=== PATIENT | female | born 1950 | race Caucasian/White ===

== ENCOUNTER 2021-06-16 12:34 | Emergency (ER) | payer MEDICARE ==
[2021-06-16 12:42] VITALS: TEMP 98.1
[2021-06-16] MEDS ORDERED: FLUORESCEIN STRIPS 1 MG STRIP LEFT EYE ONE (13:10)
[2021-06-16] MEDS ORDERED: PROPARACAINE 0.5% OPHTH DROPS 15 ML BTL RIGHT EYE STA (13:10)
--- NOTE | 2021-06-16 13:29 | ED ---
ENT HPI - General Chief complaint: ENT Stated complaint: head pain & lump on face Time Seen by Provider: 06/16/21 12:51 Source: patient Mode of arrival: ambulatory Limitations: no limitations - History of Present Illness Initial comments: 70-year-old male presents to the emergency department for a chief complaint of left-sided facial pain. Patient reports this started several days ago in the left supraorbital region and now it is moving to her scalp. Patient reports it feels like a lightening type pain that seems to exacerbate it when the area is touched. States several days ago she may have hit her head but is not completely sure. She is not any blood thinners. She does report some pain behind the left eye that does not appear to be exacerbated with extraorbital movements. She denies any visual changes, one-sided weakness or paresthesias. Head chickenpox as a child. Had itching was vaccine. States she spoke to a nurse through the phone and was advised to be evaluated for possible shingles. Denies any fever chills chest pain shortness of breath or headache. - Related Data Allergies Allergy/AdvReac Type Severity Reaction Status Date / Time cefaclor [From Ceclor] Allergy Unknown Verified 06/16/21 12:37 clindamycin Allergy Unknown Verified 06/16/21 12:37 levofloxacin [From Levaquin] Allergy Unknown Verified 06/16/21 12:37 propoxyphene Allergy Unknown Verified 06/16/21 12:37 Sulfa (Sulfonamide Allergy Unknown Verified 06/16/21 12:37 Antibiotics) tetracycline Allergy Unknown Verified 06/16/21 12:37 Review of Systems ROS Statement: Those systems with pertinent positive or pertinent negative responses have been documented in the HPI. ROS Other: All systems not noted in ROS Statement are negative. Past Medical History Past Medical History: GERD/Reflux History of Any Multi-Drug Resistant Organisms: None Reported Past Surgical History: No Surgical Hx Reported Past Psychological History: No Psychological Hx Reported Smoking Status: Former smoker Past Alcohol Use History: Occasional Past Drug Use History: None Reported General Exam Limitations: no limitations General appearance: alert, in no apparent distress Head exam: Present: atraumatic, normocephalic, normal inspection Eye exam: Present: normal appearance, PERRL, EOMI Pupils: Present: normal accommodation ENT exam: Present: normal exam, normal oropharynx, mucous membranes moist, TM's normal bilaterally, normal external ear exam Neck exam: Present: normal inspection, full ROM. Absent: tenderness, lymphadenopathy Respiratory exam: Present: normal lung sounds bilaterally. Absent: respiratory distress, wheezes, rales Cardiovascular Exam: Present: regular rate, normal rhythm, normal heart sounds Extremities exam: Present: normal inspection, full ROM Back exam: Present: normal inspection, full ROM Neurological exam: Present: alert, oriented X3 Psychiatric exam: Present: normal affect, normal mood Skin exam: Present: warm, dry, intact, normal color Course Vital Signs 06/16/21 06/16/21 06/16/21 12:37 13:42 14:06 Temperature 98.1 F 98.1 F Pulse Rate 104 H 70 Respiratory 20 18 18 Rate Blood Pressure 166/108 143/85 O2 Sat by Pulse 96 98 Oximetry Medical Decision Making - Medical Decision Making 70-year-old female presents to the emergency department with a chief complaint of facial pain. On physical examination, tenderness over the left supraorbital region. No definitive signs of shingles. No other lesions detected on the head. Patrick lamp examination shows no signs of dendritic lesions in the eye or any other abnormalities. Patient is otherwise neurovascularly intact and has no focal deficits. Patient was advised to follow-up with an solution designer and monitor the situation. Dr. Parra also examined the patient and is in agreement with the treatment plan. Return parameters were thoroughly discussed the patient was understanding and agreeable. Disposition Clinical Impression: Skin pain, Pain, eye, left Disposition: HOME SELF-CARE Condition: Stable Instructions (If sedation given, give patient instructions): Shingles Vaccine (ED) Additional Instructions: Follow-up with an solution designer. Return to emergency department if symptoms worsen. Is patient prescribed a controlled substance at d/c from ED?: No Referrals: None,Stated [Primary Care Provider] - 1-2 days Tavia Rodriguez MD [STAFF PHYSICIAN] - 1-2 days Time of Disposition: 13:39
[2021-06-16 14:06] VITALS: BP 143/85; PULSE 70; RESP 18
== END 2021-06-16 14:06 | disposition home or self-care (01) ==
LOC: EC 12:34
DX: H57.12 Ocular pain, left eye (principal); R51.9 Headache, unspecified; Z87.891 Personal history of nicotine dependence; Z88.1 Allergy status to other antibiotic agents; Z88.2 Allergy status to sulfonamides; Z88.5 Allergy status to narcotic agent
CPT/HCPCS: 99283